=== PATIENT | male | born 1960 ===

== ENCOUNTER 2017-12-28 09:43 | Emergency (ER) | payer MEDICAID ==
[~2017-12-28] VITALS: Ht 182.9 cm; Wt 81.1 kg
[2017-12-28 12:17] VITALS: BP 142/82
== END 2017-12-28 12:18 | disposition home or self-care (01) ==
LOC: ER 09:44
DX: S30.0XXA Contusion of lower back and pelvis, initial encounter (principal); F10.129 Alcohol abuse with intoxication, unspecified; Y90.9 Presence of alcohol in blood, level not specified; W19.XXXA Unspecified fall, initial encounter; Y93.89 Activity, other specified; Y92.89 Other specified places as the place of occurrence of the external cause; Y99.8 Other external cause status
CPT/HCPCS: 72170; 99283

== ENCOUNTER 2018-01-03 13:10 | Emergency (ER) | payer MEDICAID ==
[~2018-01-03] VITALS: Ht 182.9 cm; Wt 80.6 kg
[2018-01-03 13:26] VITALS: BP 134/89
[2018-01-03] MEDS ORDERED: DOXYCYCLINE 100MG CAPSULE PO STA (15:57)
[2018-01-03] MEDS ORDERED: HYDROcodone/acetaminophen 5mg/325mg tablet PO ONE (16:00)
[2018-01-03] MEDS ORDERED: DOXY-200 PO (16:00)
[2018-01-03] MEDS ORDERED: mupirocin 2% ointment 22GM TP STA (16:19)
== END 2018-01-03 16:44 | disposition home or self-care (01) ==
LOC: ER 13:11
DX: L03.116 Cellulitis of left lower limb (principal); Z79.899 Other long term (current) drug therapy
CPT/HCPCS: 99283

== ENCOUNTER 2018-01-06 13:06 | Emergency (ER) | payer MEDICAID ==
[~2018-01-06] VITALS: Ht 172.7 cm; Wt 80.0 kg
[~2018-01-06 13:06] MED LIST: DOXY-200 PO
[2018-01-06 13:18] VITALS: BP 135/89
== END 2018-01-06 14:12 | disposition home or self-care (01) ==
LOC: ER 13:07
DX: L03.116 Cellulitis of left lower limb (principal); Z48.01 Encounter for change or removal of surgical wound dressing; Z79.2 Long term (current) use of antibiotics; Z56.0 Unemployment, unspecified; Z59.0 Homelessness
CPT/HCPCS: 99282